=== PATIENT | male | born 1945 | race Caucasian/White ===

== ENCOUNTER → 2017-04-09 | Outpatient (REF) | payer MEDICARE ==
[2017-04-09 18:33] LABS: INR 2.41
[2017-04-09 19:46] LABS: MEAN CORPUSCULAR HEMOGLOBIN 27.5 pg (27.0-33.0); MEAN CORPUSCULAR HGB CONC 32.7 g/dl (32.0-36.5); MEAN CORPUSCULAR VOLUME 84.3 fl (80.0-96.0); RED CELL DISTRIBUTION WIDTH 13.9 % (11.5-14.5); WHITE BLOOD COUNT 8.4 K/mm3 (4.0-10.0)
== END ==
LOC: M LABDRWCV 16:28
PROVIDERS: ATTEND Internal Medicine Cardiovascular Disease
DX: I48.2 Chronic atrial fibrillation (principal); Z51.81 Encounter for therapeutic drug level monitoring; Z79.01 Long term (current) use of anticoagulants

== ENCOUNTER → 2017-06-04 | Outpatient (REF) | payer MEDICARE ==
[2017-06-04 17:53] LABS: INR 2.68
[2017-06-04 19:28] LABS: MEAN CORPUSCULAR HEMOGLOBIN 26.6 pg (27.0-33.0); MEAN CORPUSCULAR HGB CONC 32.9 g/dl (32.0-36.5); MEAN CORPUSCULAR VOLUME 80.8 fl (80.0-96.0); RED CELL DISTRIBUTION WIDTH 13.6 % (11.5-14.5); WHITE BLOOD COUNT 8.6 K/mm3 (4.0-10.0)
== END ==
LOC: M LAB REF 16:40
PROVIDERS: ATTEND Internal Medicine Cardiovascular Disease
DX: I48.2 Chronic atrial fibrillation (principal); Z51.81 Encounter for therapeutic drug level monitoring; Z79.01 Long term (current) use of anticoagulants

== ENCOUNTER → 2018-03-31 | Outpatient (REF) | payer MEDICARE ==
[2018-03-31 19:02] LABS: INR 2.47; PROTHROMBIN TIME 27.7 SECONDS (12.4-14.5)
== END ==
LOC: M LABDRWCV 16:21
DX: I48.2 Chronic atrial fibrillation (principal)
CPT/HCPCS: 85610

== ENCOUNTER → 2019-04-14 | Outpatient (REF) | payer MEDICARE ==
[2019-04-14 18:16] LABS: INR 2.36; PROTHROMBIN TIME 25.6 SECONDS (11.8-14.0)
== END ==
LOC: M LABDRWCV 16:12
PROVIDERS: ATTEND Internal Medicine Cardiovascular Disease
DX: I48.2 Chronic atrial fibrillation (principal); Z79.01 Long term (current) use of anticoagulants

== ENCOUNTER → 2019-06-08 | Outpatient (REF) | payer MEDICARE ==
[2019-06-08 17:43] LABS: INR 1.95
== END ==
LOC: M LABDRWCV 16:18
PROVIDERS: ATTEND Internal Medicine Cardiovascular Disease
DX: I48.2 Chronic atrial fibrillation (principal); Z79.01 Long term (current) use of anticoagulants

== ENCOUNTER → 2020-03-15 | Outpatient (REF) | payer MEDICARE ==
[2020-03-15 11:41] LABS: INR 2.87
== END ==
LOC: M LABDRAWC 11:07
PROVIDERS: ATTEND Internal Medicine Cardiovascular Disease
DX: I48.20 Chronic atrial fibrillation, unspecified (principal); Z79.01 Long term (current) use of anticoagulants

== ENCOUNTER → 2020-04-14 | Outpatient (REF) | payer MEDICARE ==
[2020-04-14 12:04] LABS: INR 3.42; PROTHROMBIN TIME 34.5 SECONDS (11.8-14.0)
== END ==
LOC: M LABDRAWC 11:33
PROVIDERS: ATTEND Internal Medicine Cardiovascular Disease
DX: I48.20 Chronic atrial fibrillation, unspecified (principal)

== ENCOUNTER → 2020-05-02 | Outpatient (REF) | payer MEDICARE ==
[2020-05-02 12:12] LABS: INR 3.13; PROTHROMBIN TIME 32.1 SECONDS (11.8-14.0)
== END ==
LOC: M LABDRAWC 11:14
PROVIDERS: ATTEND Internal Medicine Cardiovascular Disease
DX: Z79.01 Long term (current) use of anticoagulants (principal); I48.20 Chronic atrial fibrillation, unspecified

== ENCOUNTER → 2020-05-23 | Outpatient (REF) | payer MEDICARE ==
[2020-06-22 13:25] LABS: INR 3.49; PROTHROMBIN TIME 35.8 SECONDS (11.8-14.0)
== END ==
LOC: M LABDRAWC 06:55
PROVIDERS: ATTEND Internal Medicine Cardiovascular Disease
DX: Z79.01 Long term (current) use of anticoagulants (principal); I48.20 Chronic atrial fibrillation, unspecified

== ENCOUNTER → 2020-06-13 | Outpatient (REF) | payer MEDICARE ==
[2020-06-13 14:07] LABS: INR 2.24; PROTHROMBIN TIME 25.3 SECONDS (11.8-14.0)
== END ==
LOC: M LABDRAWC 11:16
PROVIDERS: ATTEND Internal Medicine Cardiovascular Disease
DX: Z79.01 Long term (current) use of anticoagulants (principal); I48.20 Chronic atrial fibrillation, unspecified; Z51.81 Encounter for therapeutic drug level monitoring

== ENCOUNTER → 2020-07-11 | Outpatient (REF) | payer MEDICARE ==
[2020-07-11 12:08] LABS: INR 1.76; PROTHROMBIN TIME 20.9 SECONDS (12.5-14.3)
== END ==
LOC: M LABDRAWC 11:03
PROVIDERS: ATTEND Internal Medicine Cardiovascular Disease
DX: Z79.01 Long term (current) use of anticoagulants (principal); I48.20 Chronic atrial fibrillation, unspecified

== ENCOUNTER → 2020-08-09 | Outpatient (REF) | payer MEDICARE ==
[2020-08-09 12:22] LABS: INR 1.95; PROTHROMBIN TIME 22.7 SECONDS (12.5-14.3)
== END ==
LOC: M LABDRAWC 11:07
PROVIDERS: ATTEND Internal Medicine Cardiovascular Disease
DX: I48.20 Chronic atrial fibrillation, unspecified (principal)

== ENCOUNTER → 2021-03-21 | Outpatient (REF) | payer MEDICARE ==
[2021-03-21 16:32] LABS: HEMATOCRIT 41.7 % (42.0-52.0); HEMOGLOBIN 13.3 g/dl (13.5-17.5); MEAN CORPUSCULAR HEMOGLOBIN 27.8 pg (27.0-33.0); MEAN CORPUSCULAR HGB CONC 31.9 g/dl (32.0-36.5); MEAN CORPUSCULAR VOLUME 87.1 fl (80.0-96.0); PLATELET COUNT, AUTOMATED 204 10^3/uL (150-450); RED BLOOD COUNT 4.79 10^6/uL (4.30-6.10); WHITE BLOOD COUNT 10.5 10^3/uL (4.0-10.0)
[2021-03-21 16:55] LABS: INR 2.38; PROTHROMBIN TIME 26.5 SECONDS (12.5-14.3)
== END ==
LOC: M LABDRWCV 15:36
PROVIDERS: ATTEND Internal Medicine Cardiovascular Disease
DX: I48.20 Chronic atrial fibrillation, unspecified (principal); Z79.01 Long term (current) use of anticoagulants

== ENCOUNTER → 2021-04-18 | Outpatient (REF) | payer MEDICARE ==
[2021-04-18 16:19] LABS: HEMATOCRIT 43.7 % (42.0-52.0); MEAN CORPUSCULAR HEMOGLOBIN 27.3 pg (27.0-33.0); MEAN CORPUSCULAR VOLUME 85.4 fl (80.0-96.0); PLATELET COUNT, AUTOMATED 231 10^3/uL (150-450); RED BLOOD COUNT 5.12 10^6/uL (4.30-6.10); WHITE BLOOD COUNT 8.2 10^3/uL (4.0-10.0)
[2021-04-18 16:27] LABS: INR 2.37; PROTHROMBIN TIME 26.4 SECONDS (12.5-14.3)
== END ==
LOC: M LABDRWCV 15:53
PROVIDERS: ATTEND Internal Medicine Cardiovascular Disease
DX: I48.20 Chronic atrial fibrillation, unspecified (principal); Z79.01 Long term (current) use of anticoagulants

== ENCOUNTER → 2021-05-16 | Outpatient (REF) | payer MEDICARE ==
[2021-05-16 19:22] LABS: INR 2.45; PROTHROMBIN TIME 26.9 SECONDS (12.7-14.5)
== END ==
LOC: M LABDRWCV 17:22
PROVIDERS: ATTEND Internal Medicine Cardiovascular Disease
DX: I48.20 Chronic atrial fibrillation, unspecified (principal); Z79.01 Long term (current) use of anticoagulants

== ENCOUNTER → 2021-06-14 | Outpatient (REF) | payer MEDICARE ==
[2021-06-14 13:01] LABS: INR 1.97; PROTHROMBIN TIME 22.9 SECONDS (12.7-14.5)
== END ==
LOC: M LABDRAWC 12:05 → M LABDRWAD 12:05
PROVIDERS: ATTEND Internal Medicine Cardiovascular Disease
DX: Z79.01 Long term (current) use of anticoagulants (principal); I48.20 Chronic atrial fibrillation, unspecified

== ENCOUNTER → 2021-07-11 | Outpatient (REF) | payer MEDICARE ==
[2021-07-11 15:54] LABS: HEMATOCRIT 43.6 % (42.0-52.0); HEMOGLOBIN 14.2 g/dl (13.5-17.5); MEAN CORPUSCULAR HEMOGLOBIN 27.4 pg (27.0-33.0); MEAN CORPUSCULAR HGB CONC 32.6 g/dl (32.0-36.5); PLATELET COUNT, AUTOMATED 197 10^3/uL (150-450); RED BLOOD COUNT 5.19 10^6/uL (4.30-6.10); WHITE BLOOD COUNT 6.8 10^3/uL (4.0-10.0)
[2021-07-11 16:08] LABS: INR 2.38; PROTHROMBIN TIME 26.4 SECONDS (12.7-14.5)
== END ==
LOC: M LABDRWCV 15:30
PROVIDERS: ATTEND Internal Medicine Cardiovascular Disease
DX: Z79.01 Long term (current) use of anticoagulants (principal); I48.20 Chronic atrial fibrillation, unspecified

== ENCOUNTER → 2021-08-07 | Outpatient (REF) | payer MEDICARE ==
[2021-08-07 11:55] LABS: HEMATOCRIT 44.8 % (42.0-52.0); HEMOGLOBIN 14.3 g/dl (13.5-17.5); MEAN CORPUSCULAR HEMOGLOBIN 26.9 pg (27.0-33.0); MEAN CORPUSCULAR HGB CONC 31.9 g/dl (32.0-36.5); MEAN CORPUSCULAR VOLUME 84.2 fl (80.0-96.0); PLATELET COUNT, AUTOMATED 204 10^3/uL (150-450); RED BLOOD COUNT 5.32 10^6/uL (4.30-6.10); WHITE BLOOD COUNT 7.3 10^3/uL (4.0-10.0)
[2021-08-07 12:03] LABS: INR 2.56; PROTHROMBIN TIME 27.8 SECONDS (12.7-14.5)
== END ==
LOC: M LABDRAWC 11:20
PROVIDERS: ATTEND Internal Medicine Cardiovascular Disease
DX: I48.20 Chronic atrial fibrillation, unspecified (principal); Z79.01 Long term (current) use of anticoagulants

== ENCOUNTER → 2022-03-05 | Outpatient (REF) | payer MEDICARE ==
[2022-03-05 16:39] LABS: HEMATOCRIT 44.4 % (42.0-52.0); HEMOGLOBIN 14.4 g/dl (13.5-17.5); MEAN CORPUSCULAR HEMOGLOBIN 28.6 pg (27.0-33.0); MEAN CORPUSCULAR HGB CONC 32.4 g/dl (32.0-36.5); MEAN CORPUSCULAR VOLUME 88.3 fl (80.0-96.0); PLATELET COUNT, AUTOMATED 199 10^3/uL (150-450); RED BLOOD COUNT 5.03 10^6/uL (4.30-6.10); WHITE BLOOD COUNT 9.6 10^3/uL (4.0-10.0)
[2022-03-05 16:48] LABS: INR 1.9; PROTHROMBIN TIME 22.2 SECONDS (12.7-14.5)
== END ==
LOC: M LABDRWCV 15:29
PROVIDERS: ATTEND Internal Medicine Cardiovascular Disease
DX: I48.20 Chronic atrial fibrillation, unspecified (principal); Z79.01 Long term (current) use of anticoagulants

== ENCOUNTER → 2022-04-02 | Outpatient (REF) | payer MEDICARE ==
[2022-04-02 16:27] LABS: HEMATOCRIT 46.3 % (42.0-52.0); MEAN CORPUSCULAR HEMOGLOBIN 27.9 pg (27.0-33.0); MEAN CORPUSCULAR HGB CONC 32.4 g/dl (32.0-36.5); MEAN CORPUSCULAR VOLUME 86.2 fl (80.0-96.0); PLATELET COUNT, AUTOMATED 261 10^3/uL (150-450); RED BLOOD COUNT 5.37 10^6/uL (4.30-6.10); WHITE BLOOD COUNT 7.5 10^3/uL (4.0-10.0)
[2022-04-02 16:56] LABS: INR 2.15; PROTHROMBIN TIME 24.4 SECONDS (12.7-14.5)
== END ==
LOC: M LABDRWCV 16:00
PROVIDERS: ATTEND Internal Medicine Cardiovascular Disease
DX: I48.20 Chronic atrial fibrillation, unspecified (principal); Z79.01 Long term (current) use of anticoagulants

== ENCOUNTER → 2022-04-02 | Outpatient (REF) | payer MEDICARE | LOC: M LABDRWCV 15:58 | PROVIDERS: ATTEND Registered Nurse | DX: R79.89 Other specified abnormal findings of blood chemistry (principal); M10.9 Gout, unspecified ==

== ENCOUNTER → 2022-04-30 | Outpatient (REF) | payer MEDICARE ==
[2022-04-30 16:06] LABS: HEMATOCRIT 44.2 % (42.0-52.0); HEMOGLOBIN 14.5 g/dl (13.5-17.5); MEAN CORPUSCULAR HEMOGLOBIN 27.8 pg (27.0-33.0); MEAN CORPUSCULAR HGB CONC 32.8 g/dl (32.0-36.5); MEAN CORPUSCULAR VOLUME 84.7 fl (80.0-96.0); PLATELET COUNT, AUTOMATED 226 10^3/uL (150-450); RED BLOOD COUNT 5.22 10^6/uL (4.30-6.10); WHITE BLOOD COUNT 7.7 10^3/uL (4.0-10.0)
[2022-04-30 16:07] LABS: CALCIUM LEVEL 8.6 MG/DL (8.8-10.2); CREATININE FOR GFR 1.93 MG/DL (0.70-1.30); GLOMERULAR FILTRATION RATE 36.3 (>42); MAGNESIUM LEVEL 2.2 MG/DL (1.8-2.4); POTASSIUM SERUM 3.4 MEQ/L (3.5-5.1)
== END ==
LOC: M LABDRWCV 15:33
PROVIDERS: ATTEND Physician Assistant
DX: N18.30 Chronic kidney disease, stage 3 unspecified (principal); I48.20 Chronic atrial fibrillation, unspecified; Z79.01 Long term (current) use of anticoagulants

== ENCOUNTER → 2022-04-30 | Outpatient (REF) | payer MEDICARE ==
[2022-04-30 16:22] LABS: INR 2.11; PROTHROMBIN TIME 24.1 SECONDS (12.7-14.5)
== END ==
LOC: M LABDRWCV 15:36
PROVIDERS: ATTEND Internal Medicine Cardiovascular Disease
DX: I48.20 Chronic atrial fibrillation, unspecified (principal); Z79.01 Long term (current) use of anticoagulants

== ENCOUNTER → 2022-05-28 | Outpatient (REF) | payer MEDICARE ==
[2022-05-28 17:59] LABS: HEMATOCRIT 45.3 % (42.0-52.0); HEMOGLOBIN 14.6 g/dl (13.5-17.5); MEAN CORPUSCULAR HEMOGLOBIN 27.5 pg (27.0-33.0); MEAN CORPUSCULAR HGB CONC 32.2 g/dl (32.0-36.5); MEAN CORPUSCULAR VOLUME 85.3 fl (80.0-96.0); PLATELET COUNT, AUTOMATED 209 10^3/uL (150-450); RED BLOOD COUNT 5.31 10^6/uL (4.30-6.10)
[2022-05-28 18:12] LABS: INR 1.89; PROTHROMBIN TIME 22.2 SECONDS (12.7-14.5)
== END ==
LOC: M LABDRWCV 16:41
PROVIDERS: ATTEND Internal Medicine Cardiovascular Disease
DX: Z79.01 Long term (current) use of anticoagulants (principal)

== ENCOUNTER → 2022-06-26 | Outpatient (REF) | payer MEDICARE ==
[2022-06-26 18:12] LABS: HEMATOCRIT 42.7 % (42.0-52.0); HEMOGLOBIN 13.7 g/dl (13.5-17.5); MEAN CORPUSCULAR HEMOGLOBIN 27.5 pg (27.0-33.0); MEAN CORPUSCULAR HGB CONC 32.1 g/dl (32.0-36.5); MEAN CORPUSCULAR VOLUME 85.7 fl (80.0-96.0); PLATELET COUNT, AUTOMATED 188 10^3/uL (150-450); RED BLOOD COUNT 4.98 10^6/uL (4.30-6.10); WHITE BLOOD COUNT 7.3 10^3/uL (4.0-10.0)
[2022-06-26 18:42] LABS: INR 2.07; PROTHROMBIN TIME 23.7 SECONDS (12.7-14.5)
== END ==
LOC: M LABDRWCV 17:26
PROVIDERS: ATTEND Internal Medicine Cardiovascular Disease
DX: Z79.01 Long term (current) use of anticoagulants (principal); I48.20 Chronic atrial fibrillation, unspecified

== ENCOUNTER → 2023-03-18 | Outpatient (REF) | payer MEDICARE ==
[2023-03-18 18:10] LABS: INR 2.18; PROTHROMBIN TIME 24.6 SECONDS (12.5-14.5)
== END ==
LOC: M LABDRWAD 16:50
PROVIDERS: ATTEND Internal Medicine Cardiovascular Disease
DX: I48.21 Permanent atrial fibrillation (principal)

== ENCOUNTER → 2023-04-22 | Outpatient (REF) | payer MEDICARE ==
[2023-04-22 18:26] LABS: INR 2.02; PROTHROMBIN TIME 23.2 SECONDS (12.5-14.5)
== END ==
LOC: M LABDRWCV 16:56
PROVIDERS: ATTEND Internal Medicine Cardiovascular Disease
DX: I48.21 Permanent atrial fibrillation (principal)

== ENCOUNTER → 2023-05-20 | Outpatient (REF) | payer MEDICARE ==
[2023-05-20 17:24] LABS: INR 2.19; PROTHROMBIN TIME 24.7 SECONDS (12.5-14.5)
== END ==
LOC: M LABDRWCV 16:31
PROVIDERS: ATTEND Internal Medicine Cardiovascular Disease
DX: I48.21 Permanent atrial fibrillation (principal)

== ENCOUNTER → 2023-06-24 | Outpatient (REF) | payer MEDICARE ==
[2023-06-24 17:08] LABS: INR 2.42; PROTHROMBIN TIME 25.7 SECONDS (12.5-14.5)
== END ==
LOC: M LABDRWCV 16:48
PROVIDERS: ATTEND Internal Medicine Cardiovascular Disease
DX: I48.21 Permanent atrial fibrillation (principal)

== ENCOUNTER → 2023-07-23 | Outpatient (REF) | payer MEDICARE ==
[2023-07-23 17:39] LABS: INR 2.35; PROTHROMBIN TIME 25.1 SECONDS (12.5-14.5)
== END ==
LOC: M LABDRWCV 16:55
PROVIDERS: ATTEND Internal Medicine Cardiovascular Disease
DX: I48.21 Permanent atrial fibrillation (principal)

== ENCOUNTER → 2024-03-30 | Outpatient (REF) | payer MEDICARE ==
[2024-03-30 16:46] LABS: HEMATOCRIT 45.9 % (42.0-52.0); HEMOGLOBIN 14.7 g/dl (13.5-17.5); MEAN CORPUSCULAR HEMOGLOBIN 27.9 pg (27.0-33.0); MEAN CORPUSCULAR VOLUME 87.1 fl (80.0-96.0); PLATELET COUNT, AUTOMATED 250 10^3/uL (150-450); RED BLOOD COUNT 5.27 10^6/uL (4.30-6.10); WHITE BLOOD COUNT 12.1 10^3/uL (4.0-10.0)
[2024-03-30 17:03] LABS: INR 3.52
== END ==
LOC: M LABDRWCV 16:34
PROVIDERS: ATTEND Internal Medicine Cardiovascular Disease
DX: I48.20 Chronic atrial fibrillation, unspecified (principal); Z79.01 Long term (current) use of anticoagulants

== ENCOUNTER → 2024-04-27 | Outpatient (REF) | payer MEDICARE ==
[2024-04-27 17:32] LABS: HEMATOCRIT 42.3 % (42.0-52.0); HEMOGLOBIN 13.6 g/dl (13.5-17.5); MEAN CORPUSCULAR HEMOGLOBIN 28.3 pg (27.0-33.0); MEAN CORPUSCULAR HGB CONC 32.2 g/dl (32.0-36.5); MEAN CORPUSCULAR VOLUME 88.1 fl (80.0-96.0); PLATELET COUNT, AUTOMATED 222 10^3/uL (150-450); WHITE BLOOD COUNT 6.8 10^3/uL (4.0-10.0)
== END ==
LOC: M LABDRWCV 16:38
PROVIDERS: ATTEND Internal Medicine Cardiovascular Disease
DX: I48.20 Chronic atrial fibrillation, unspecified (principal); Z79.01 Long term (current) use of anticoagulants

== ENCOUNTER → 2024-06-01 | Outpatient (REF) | payer MEDICARE ==
[2024-06-01 16:49] LABS: HEMOGLOBIN 14.2 g/dl (13.5-17.5); MEAN CORPUSCULAR HEMOGLOBIN 27.6 pg (27.0-33.0); MEAN CORPUSCULAR HGB CONC 31.6 g/dl (32.0-36.5); MEAN CORPUSCULAR VOLUME 87.4 fl (80.0-96.0); PLATELET COUNT, AUTOMATED 237 10^3/uL (150-450); RED BLOOD COUNT 5.15 10^6/uL (4.30-6.10); WHITE BLOOD COUNT 9.4 10^3/uL (4.0-10.0)
[2024-06-01 17:20] LABS: INR 2.27; PROTHROMBIN TIME 24.2 SECONDS (12.5-14.5)
== END ==
LOC: M LABDRAWC 16:36
PROVIDERS: ATTEND Internal Medicine Cardiovascular Disease
DX: I48.20 Chronic atrial fibrillation, unspecified (principal); Z79.01 Long term (current) use of anticoagulants

== ENCOUNTER → 2024-06-29 | Outpatient (REF) | payer MEDICARE ==
[2024-06-29 16:39] LABS: HEMATOCRIT 41.1 % (42.0-52.0); HEMOGLOBIN 12.6 g/dl (13.5-17.5); MEAN CORPUSCULAR HEMOGLOBIN 26.5 pg (27.0-33.0); MEAN CORPUSCULAR HGB CONC 30.7 g/dl (32.0-36.5); MEAN CORPUSCULAR VOLUME 86.5 fl (80.0-96.0); PLATELET COUNT, AUTOMATED 180 10^3/uL (150-450); RED BLOOD COUNT 4.75 10^6/uL (4.30-6.10); WHITE BLOOD COUNT 5.9 10^3/uL (4.0-10.0)
[2024-06-29 16:53] LABS: INR 2.43; PROTHROMBIN TIME 25.5 SECONDS (12.5-14.5)
== END ==
LOC: M LABDRWCV 16:30
PROVIDERS: ATTEND Internal Medicine Cardiovascular Disease
DX: I48.20 Chronic atrial fibrillation, unspecified (principal); Z79.01 Long term (current) use of anticoagulants